=== PATIENT | female | born 1940 | race Caucasian/White ===

== ENCOUNTER 2017-01-28 08:13 | Day surgery (SDC) | payer MEDICARE, BC ==
--- NOTE | ~2017-01-28 | EGD ---
EGD REPORT [facility] [address] [id number] NAME: MARJ ZULUAGA : [birth year] STATUS : [facility] UNIT#: [id number] AGE: 76 ADM/REG DATE : 01/28/17 MR#: [id number] REPORT SERV DATE: 01/28/17 DICTATED BY: MARCELLE BURT DATE: 01/28/17 REPORT STATUS : Draft TRANSCRIBED BY: [facility] DATE: 01/28/17 Endoscopy Center Patient Name: Marj Zuluaga Date of : 1940 Attending MD: MARCELLE BURT MD Procedure Date No Time: 01/28/2017 Procedure: Colonoscopy Indications: High risk colon cancer surveillance: Personal history of colonic polyps Referring MD: CAROLYN PASCUAL MD Medicines: as per anesthesia Complications: No immediate complications. Procedure: Pre-Anesthesia Assessment: - ASA Grade Assessment: II - A patient with mild systemic disease. After I obtained informed consent, the scope was passed under direct vision. Throughout the procedure, the patient's blood pressure, pulse, and oxygen saturations were monitored continuously. The PCF [id number] was introduced through the anus and advanced to the cecum, identified by appendiceal orifice and ileocecal valve. The colonoscopy was somewhat difficult due to restricted mobility of the colon, significant looping and a tortuous colon. The patient tolerated the procedure. The quality of the bowel preparation was fair. Findings: The perianal and digital rectal examinations were normal. Internal hemorrhoids were found during endoscopy and were mild. Impression: - Internal hemorrhoids. Recommendation: - Continue present medications. Procedure Code(s): --- Professional --- 64127, Colonoscopy, flexible, proximal to splenic flexure; diagnostic, with or without collection of specimen(s) by brushing or washing, with or without colon decompression (separate procedure) Diagnosis Code(s): --- Professional --- K64.8, Other hemorrhoids Z86.010, Personal history of colonic polyps EGD REPORT [facility] [address] [id number] NAME: MARJ ZULUAGA : [birth year] STATUS : [facility] UNIT#: [id number] AGE: 76 ADM/REG DATE : 01/28/17 MR#: [id number] REPORT SERV DATE: 01/28/17 DICTATED BY: MARCELLE BURT. DATE: 01/28/17 REPORT STATUS : Draft TRANSCRIBED BY: [employer] SERVICES DATE: 01/28/17 CPT copyright 2013 [employer]. All rights reserved. The codes documented in this report are preliminary and upon dismantler review may be revised to meet current compliance requirements. MARCELLE BURT MD 01/28/2017 10:59 AM This report has been signed electronically. Number of Addenda: 0 Note Initiated On: 01/28/2017 10:23 AM Scope Withdrawal Time 0 hours 7 minutes 39 seconds [id number] [facility] [address] [id number]
[~2017-01-28 08:13] MED LIST: ASAB PO; CALTRA600D PO; CALTRAT600 PO; CENTRUM TAB1 TAB PO; FISH-EPA1000 MG PO; FOSAMAX70 MG PO; GLUCPH PO; LIPITOR20 PO; MULTIPLE VIT PO; MULTIVITAMI1 PO; VITAMIN D1000 UNI1 PO; VITAMIN D31000 UNIT PO; ZOCOR40 PO
== END 2017-01-28 23:59 | disposition home or self-care (01) ==
LOC: DMU 08:13
PROVIDERS: Internal Medicine Gastroenterology
PROC: 0DJD8ZZ Inspection of Lower Intestinal Tract, Via Natural or Artificial Opening Endoscopic (ICD-10-PCS; principal; 2017-01-28 10:00)
DX: Z12.11 Encounter for screening for malignant neoplasm of colon (principal); K64.8 Other hemorrhoids; E11.9 Type 2 diabetes mellitus without complications; E78.5 Hyperlipidemia, unspecified; Z86.010 Personal history of colon polyps
CPT/HCPCS: 82962